=== PATIENT | male | born 1995 | race Caucasian/White ===

== ENCOUNTER 2020-01-04 16:30 | Emergency (ER) | payer BC, SELFPAY | END 2020-01-04 17:53 | disposition home or self-care (01) | LOC: ERS 16:30 | DX: R07.89 Other chest pain (principal); F41.9 Anxiety disorder, unspecified; F32.9 Major depressive disorder, single episode, unspecified; Z79.899 Other long term (current) drug therapy; V89.2XXA Person injured in unspecified motor-vehicle accident, traffic, initial encounter | CPT/HCPCS: 99283 ==